=== PATIENT | male | born 1965 | race Caucasian/White ===

== ENCOUNTER → 2023-03-29 14:36 | Outpatient (CLI) | payer OTHER, SELFPAY ==
--- NOTE | 2023-03-29 | DI.US.S_ITS ---
PROCEDURE: US CAROTID DOPPLER BI INDICATIONS: Occlusion and stenosis of bilateral carotid TECHNIQUE: Color and pulse Doppler interrogation was performed of both carotid systems, with image documentation and velocity measurements. COMPARISON: None. FINDINGS: Stenosis calculations are based on SRU ([employer] in [employer]) criteria. Right side: Brachial blood pressure: 138/76 mm Hg. Common carotid artery peak systolic velocity: 54 cm/sec. Internal carotid artery peak systolic velocity: 131 cm/sec. Internal carotid artery end diastolic velocity: 150 cm/sec. External carotid artery peak systolic velocity: 55 cm/sec. ICA/CCA peak systolic ratio: 2.8 . Hubbard scale imaging description: Extensive atherosclerotic plaque. Percent internal carotid artery stenosis: 50-69 percent . Vertebral artery: Flow direction is antegrade. Left side: Brachial blood pressure: 113/71 mm Hg. Common carotid artery peak systolic velocity: 65 cm/sec. Internal carotid artery peak systolic velocity: 110 cm/sec. Internal carotid artery end diastolic velocity: 123 cm/sec. External carotid artery peak systolic velocity: 96 cm/sec. ICA/CCA peak systolic ratio: 1.8 . Hubbard scale imaging description: Extensive atherosclerotic plaque. Percent internal carotid artery stenosis: Less than 50 percent . Vertebral artery: Flow direction is antegrade. IMPRESSION: 50-69 percent stenosis of the right internal carotid artery by peak systolic velocity criteria. No hemodynamically significant stenosis in the left internal carotid artery. Extensive plaque. Asymmetric brachial blood pressure, elevated on the right, probably indicating stenosis. Dictated by: Colby Salmeron M.D. on 03/30/2023 at 11:01 Approved by: Colby Salmeron M.D. on 03/30/2023 at 11:02
== END ==
PROVIDERS: Referring Provider Physician Assistant; Visit Provider Physician Assistant
DX: I65.21 Occlusion and stenosis of right carotid artery (principal)
CPT/HCPCS: 93880